=== PATIENT | male | born 2000 | race Caucasian/White ===

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

== ENCOUNTER 2021-03-01 00:51 | Emergency (ER) | payer SELFPAY ==
--- NOTE | 2021-03-01 | ECG_ITS ---
APPROVED REPORT Exam: Resting ECG HR:91 bpm ECG Measurements Heart Rate 91 AXES GA 136 P 42 QRSd 92 QRS 0 QT 340 T 43 QTc 418 Conclusion Normal sinus rhythm Normal ECG Electronically signed by : Gabriele Arenas, 03/01/2021 13:46:38
[2021-03-01 00:54] VITALS: BP 142/83; PULSE 97; RESP 18; TEMP 36.4; O2SAT 100; BMI 33.5
[2021-03-01 01:14] LABS: Basophils # 0.1 K/mm3 (0-0.2); Basophils % 0.7 % (0.1-2.0); Eosinophils # 0.1 K/mm3 (0.0-0.4); Eosinophils % 0.7 % (0.1-12.0); Hematocrit 46.3 % (42.0-52.0); Hemoglobin 16.1 g/dL (14.1-18.0); Lymphocytes # 2.3 K/mm3 (0.7-4.5); Lymphocytes % 25.5 % (10-50); Mean Corpuscular HGB Conc 34.8 g/dL (31.8-35.4); Mean Corpuscular Hemoglobin 29.3 pg (27.0-31.2); Mean Corpuscular Volume 84.2 fl (80-94); Mean Platelet Volume 8.1 fl (7.4-10.4); Monocytes # 0.5 K/mm3 (0.1-1.0); Monocytes % 5.2 % (1.7-9.3); Neutrophils # 6.2 K/mm3 (1.8-7.8); Platelet Count 244 K/mm3 (142-424); Red Cell Distribution Width 13.8 % (11.5-17.5); White Blood Count 9.1 K/mm3 (4.5-13.0)
[2021-03-01 01:19] LABS: Alanine Aminotransferase 64 U/L (12-78); Albumin Level 4.9 g/dl (3.5-5.0); Alkaline Phosphatase 74 U/L (38-126); Amylase 55 U/L (30-110); Anion Gap 17.1 mEq/L (5-15); Aspartate Amino Transferase 38 U/L (17-59); Bilirubin,Direct 0.4 mg/dl (0.0-0.4); Bilirubin,Indirect 0.2 mg/dL (0.0-0.9); Bilirubin,Total 0.6 mg/dl (0.2-1.3); Bilirubin,Unconjugated 0.2 mg/dL (0.0-1.1); Blood Urea Nitrogen 11 mg/dl (9-20); Calcium 9.2 mg/dl (8.4-10.2); Carbon Dioxide 28 mmol/L (22.0-30.0); Chloride 100 mmol/L (98-107); Creatinine Clearance Estimated 203 mL/min (50-200); Estimated Glomerular Filt Rate 109 ml/min (>60); GFR (African American) 132 ML/MIN (>60); Glucose 115 mg/dl (74-100); Lipase 126 U/L (23-300); Potassium 4.1 mmoL/L (3.5-5.1); Sodium 141 mmol/L (136-145)
[2021-03-01 01:24] LABS: C-Reactive Protein 1.4 mg/L (0-4)
[2021-03-01 01:29] VITALS: BP 00/00; PULSE 0; RESP 0; TEMP -17.7; TEMP 0; O2SAT 0
[2021-03-01 01:35] LABS: Procalcitonin 0.046 ng/mL (0.0-2.0)
[2021-03-01 01:46] LABS: Erythrocyte Sedimentation Rate 6 mm/hr (0-15)
== END 2021-03-01 01:30 | disposition left against medical advice (07) ==
PROVIDERS: Emergency Provider Emergency Medicine; PCP Internal Medicine Adolescent Medicine
DX: Z53.21 Procedure and treatment not carried out due to patient leaving prior to being seen by health care provider (principal)
CPT/HCPCS: 80048; 80076; 82150; 83690; 84145; 85025; 85651; 86140; 93005; 96365; 96375; 99211

== ENCOUNTER → 2021-05-15 11:19 | Outpatient (CLI) | payer OTHER, SELFPAY | PROVIDERS: PCP Internal Medicine Adolescent Medicine; Visit Provider Nurse Practitioner | DX: Z20.822 Contact with and (suspected) exposure to COVID-19 (principal) | CPT/HCPCS: C9803; U0003; U0005 ==

== ENCOUNTER → 2021-08-07 13:52 | Outpatient (CLI) | payer OTHER, SELFPAY | PROVIDERS: PCP Internal Medicine Adolescent Medicine; Visit Provider Nurse Practitioner | DX: Z20.822 Contact with and (suspected) exposure to COVID-19 (principal) | CPT/HCPCS: C9803; U0003; U0005 ==

== ENCOUNTER 2021-08-29 14:58 | Emergency (ER) | payer SELFPAY ==
[2021-08-29 16:50] VITALS: BP 146/80; PULSE 78; RESP 19; TEMP 37.1; O2SAT 98; BMI 42.6
[2021-08-29 17:09] LABS: UTC Strep Screen (Rapid) Negative (Negative)
--- NOTE | 2021-08-29 17:25 | HMH.EDUTC ---
[facility] [place] Clinical Impression: Otitis media Qualifiers: Otitis media type: unspecified Laterality: right Qualified Code(s): H66.91 - Otitis media, unspecified, right ear Disposition: Home, Self-Care Condition on Discharge: Good Instructions: Sore Throat, Middle Ear Infection Additional Instructions: *Monitor Temp, Over the counter Motrin or Tylenol as directed/as needed Tylenol every 4 hours and Motrin every 6 hours (as long as your family doctor has told you that you can take it) for fever or pain. and straight to ER if unable to lower temp less than 101.0 after medication given *Warm salt water gargles may help to soothe the throat *Throat Lozenges *Warm fluids like tea with honey may help to soothe the throat *Sleep elevated *Humidifier/Vaporizer Take medication as prescribed Your throat swab was sent for culture. Those results are typically sent to your primary care. Be sure to follow up in 2-3 days with your family doctor/primary care physician if no improvement so they can review those result and treat if necessary. If you don?t have a primary care doctor, I recommend you get one but in the mean time, you will have to return to a walk in clinic Follow up IMMEDIATELY for new or worsening symptoms or no Noticeable improvement over the next 48-72 hours. 911 for difficulty breathing or swallowing Prescriptions: Amoxicillin [Amoxicillin 875MG Tab] 875 mg PO Q12H #20 tab [id number] Referrals: Gabriele Arenas MD [Primary Care Provider] - As needed Time of Disposition: 17:49 Medical Decision Making - Billy Inquiry Pt receiving controlled substance: No Billy was queried for this patient: No Vital Signs: 08/29/21 16:50 Temperature 98.7 F Temperature Source Oral Pulse Rate [Right Brachial] 78 Respiratory Rate 19 Blood Pressure [Right Arm] 146/80 H Blood Pressure Mean [Right Arm] 102 Blood Pressure Source [Right Arm] Automatic Cuff Blood Pressure Position [Right Arm] Sitting 02 Sat by Pulse Oximetry 98 Oxygen Delivery Method Room Air - Lab Data Lab Results 08/29/21 17:01: Strep Scn Rapid Clinic Negative 08/29/21 17:30: Influenza Type A Ag Negative, Influenza Type B Ag Negative Orders (Tests/Meds): ORDERS Category Date Time Status Strep Screen Confirmation Stat Micro 08/29/21 17:01 Received [facility] [place] - General Stated complaint: sore throat, congestion, ear pain Time Seen by Provider: 08/29/21 17:25 Mode of Arrival: Ambulatory Source of Information: Patient Limitations: No Limitations Description of Symptoms (Recalled from Triage Doc. by RN): PATIENT C/O SORE THROAT, EAR PAIN, AND NASAL CONGESTION SINCE TUESDAY HEENT Symptoms (Recalled from RN notes): Yes Resp Symptoms (Recalled from RN notes): No Skin Symptoms (Recalled from RN notes): No MS Symptoms (Recalled from RN notes): No Functional Status (Recalled from RN notes): WNL - History of Present Illness Provider Complaint: Patient states that he has been having pain in his right ear, sinus congestion and sore throat for the last couple of days that has continued to get worse States that today he was still feeling bad so he came in to get checked - Related Data Previous Rx's Medication Instructions Recorded Ondansetron [Zofran 4mg ODT] 4 mg PO TIDP PRN #10 tab 08/31/20 Amoxicillin [Amoxicillin 875MG 875 mg PO Q12H #20 tab 08/29/21 Tab] Allergies Allergy/AdvReac Type Severity Reaction Status Date / Time No Known Allergies Allergy Verified 07/28/20 17:28 - Worker's Comp Is this a Worker's Comp case?: No [facility] History - Hepatitis A Screen Drug use history?: No High risk sexual behaviors?: No History of sexually transmitted infection?: No Currently employed?: No Childcare worker?: No Do you have indoor plumbing?: Yes Do you have electricity?: Yes Attestation statement:: This patient has been screened for Hepatitis A risk factors. I have revie
[2021-08-29 17:44] LABS: UTC Influenza A Antigen Negative (Negative); UTC Influenza B Antigen Negative (Negative)
[2021-08-29 17:48] VITALS: BP 146/80; PULSE 78; RESP 19; TEMP 37.1; O2SAT 98
== END 2021-08-29 17:51 | disposition home or self-care (01) ==
PROVIDERS: Emergency Provider Nurse Practitioner; PCP Internal Medicine Adolescent Medicine
DX: H66.91 Otitis media, unspecified, right ear (principal)
CPT/HCPCS: 87804; 87880; 99203; G0463

== ENCOUNTER 2021-08-30 16:59 | Emergency (ER) | payer OTHER, SELFPAY ==
[2021-08-30 19:30] VITALS: BP 141/82; PULSE 86; RESP 19; TEMP 37; O2SAT 98; BMI 38.0
--- NOTE | 2021-08-30 19:47 | HMH.EDUTC ---
[facility] – [place] Disposition Clinical Impression: Encounter for laboratory testing for COVID-19 virus Otitis media Qualifiers: Otitis media type: suppurative Chronicity: acute Laterality: right Recurrence: non-recurrent Spontaneous tympanic membrane rupture: without spontaneous rupture Qualified Code(s): H66.001 - Acute suppurative otitis media without spontaneous rupture of ear drum, right ear Disposition: Home, Self-Care Condition on Discharge: Good Instructions: DI for COVID-19 (Suspected or Confirmed ) Additional Instructions: covid swab was sent to lab, call tomorrow for results. self isolate until test results are known to be negative Referrals: Gabriele Arenas MD [Primary Care Provider] - Time of Disposition: 19:50 Medical Decision Making - Billy Inquiry Pt receiving controlled substance: No Orders (Tests/Meds): ORDERS Category Date Time Status Covid-19 Nasal PCR ([facility]) Routine Lab 08/30/21 19:43 Ordered [facility] [place] HPI - General Chief complaint: [facility] Stated complaint: covid test Time Seen by Provider: 08/30/21 19:48 Mode of Arrival: Ambulatory Source of Information: Patient Limitations: No Limitations - History of Present Illness Provider Complaint: 21 yr old male presents for covid test. pt states he was seen yesterday and given antibiotics for ear infection and was tested for strep,flu but would like tested for covid - Related Data Previous Rx's Medication Instructions Recorded Ondansetron [Zofran 4mg ODT] 4 mg PO TIDP PRN #10 tab 08/31/20 Amoxicillin [Amoxicillin 875MG 875 mg PO Q12H #20 tab 08/29/21 Tab] Allergies Allergy/AdvReac Type Severity Reaction Status Date / Time No Known Allergies Allergy Verified 07/28/20 17:28 [facility] History - Hepatitis A Screen Attestation statement:: This patient has been screened for Hepatitis A risk factors. I have reviewed the patient's past medical history: Yes Medical History: Denies:: Diabetes Mellitus Type 1, Diabetes Mellitus Type 2 Laterality Cases: Bilateral: Myringotomy (Ear Tubes), Tonsillectomy Other Surgeries: Yes: Other - Social History Smoking Status: Never smoker Alcohol Intake: never Occupational Status: employed Family Hx:: No significant family history ROS Obtained: Yes Systems reviewed as appropriate & no additional complaints - Constitutional Constitutional: Reports system reviewed and no additional complaints, except as docu, Denies fever(s) - Eyes Eyes: Reports system reviewed and no additional complaints, except as docu, Denies blurry vision - ENT Ears, Nose, Mouth, and Throat: Reports system reviewed and no additional complaints, except as docu, Reports otalgia, Reports nasal congestion, Reports nasal discharge, Reports sore throat - Cardiovascular Cardiovascular: Reports system reviewed and no additional complaints, except as docu, Denies chest pain - Respiratory Respiratory: Reports system reviewed and no additional complaints, except as docu, Denies cough - Gastrointestinal Gastrointestingal: Reports: system reviewed and no additional complaints, except as docu. Denies: abdominal pain - Genitourinary Male Genitourinary: Reports system reviewed and no additional complaints, except as docu - Musculoskeletal Musculoskeletal: Reports system reviewed and no additional complaints, except as docu, Denies joint pain - Integumentary/Breasts Skin/Breast: Reports system reviewed and no additional complaints, except as docu, Denies rash - Neurologic Neurologic: Reports system reviewed and no additional complaints, except as docu, Denies dizziness - Endocrine Endocrine: Reports system reviewed and no additional complaints, except as docu, Denies fatigue - Hematologic/Lymphatic Henatologic/Lymphatic: Reports system reviewed and no additional complaints, except as docu, Denies lymphadenopathy - Allergic/Immunologic Allergic/Immunologic: Reports system reviewed and no additional compla
[2021-08-30 19:51] VITALS: BP 141/82; PULSE 86; RESP 19; TEMP 37; O2SAT 98
== END 2021-08-30 19:55 | disposition home or self-care (01) ==
PROVIDERS: Emergency Provider Nurse Practitioner Family; PCP Internal Medicine Adolescent Medicine
DX: U07.1 COVID-19 (principal); H66.001 Acute suppurative otitis media without spontaneous rupture of ear drum, right ear
CPT/HCPCS: 99202; C9803; G0463; U0003; U0005

== ENCOUNTER 2022-01-31 00:05 | Emergency (ER) | payer SELFPAY ==
[2022-01-31] VITALS (7 sets, daily range): BP systolic 140–168; BP diastolic 79–88; PULSE 99–136; RESP 16–17; TEMP 36.7; O2SAT 95–98; BMI 38.0
--- NOTE | 2022-01-31 00:04 | ECG_ITS ---
APPROVED REPORT Exam: Resting ECG HR:126 bpm ECG Measurements Heart Rate 126 AXES OR 135 P 31 QRSd 98 QRS 38 QT 293 T 27 QTc 368 Conclusion SINUS TACHYCARDIA POSSIBLE RIGHT VENTRICULAR CONDUCTION DELAY [RSR (QR) IN V1/V2] ABNORMAL RHYTHM ECG UNCONFIRMED REPORT Electronically signed by : Gabriele Arenas MD 02/02/2022 22:20:58
--- NOTE | 2022-01-31 00:15 | HMH.EDGENADL ---
ED Disposition Clinical Impression: Atypical chest pain Disposition: Home, Self-Care Condition on Discharge: Good Instructions: DI for Atypical Chest Pain Additional Instructions: Recommend Tylenol and ibuprofen for continued pain. You are given follow-up with cardiology due to repeat episodes of this pain but it is very low risk based on data that this pain is related to your heart. Referrals: Gabriele Arenas MD [Primary Care Provider] - Cardiology [Provider Group] Cristóbal Mireles PA [Physician Door Liner Helper] - - Critical Care Critical Care Time: No Attestation: On 01/31/22, the high probability of a clinically significant, sudden or life threatening deterioration of the following system(s) required my full and direct attention, intervention and personal management. The time I documented below is in addition to time spent performing reported procedures but includes the following listed in this critical care notation. Medical Decision Making - Medical Records Medical records reviewed: Yes: I reviewed the patient's medical records. - Billy Inquiry Pt receiving controlled substance: No Vital Signs: 01/31/22 00:05 01/31/22 00:30 01/31/22 01:00 Temperature 98.1 F Temperature Source Oral Pulse Rate 136 H 118 H Pulse Rate [Right] 117 H Respiratory Rate 16 Blood Pressure Blood Pressure [Right Arm] 168/86 H Blood Pressure Mean Blood Pressure Mean [Right Arm] 113 02 Sat by Pulse Oximetry 98 95 95 Oxygen Delivery Method 01/31/22 01:31 01/31/22 02:00 01/31/22 03:00 Temperature Temperature Source Pulse Rate 109 H 114 H 111 H Pulse Rate [Right] Respiratory Rate Blood Pressure 140/88 148/79 H Blood Pressure [Right Arm] Blood Pressure Mean 97 Blood Pressure Mean [Right Arm] 02 Sat by Pulse Oximetry 95 95 97 Oxygen Delivery Method 01/31/22 03:26 Temperature 98.0 F Temperature Source Oral Pulse Rate 99 H Pulse Rate [Right] Respiratory Rate 17 Blood Pressure 140/79 Blood Pressure [Right Arm] Blood Pressure Mean Blood Pressure Mean [Right Arm] 02 Sat by Pulse Oximetry Oxygen Delivery Method Room Air - Lab Data Lab Results 01/31/22 00:34: Sodium 139, Potassium 3.9, Chloride 103, Carbon Dioxide 25, Anion Gap 14.9, BUN 8 L, Creatinine 0.80, Estimated Creat Clear 236, Estimated GFR 123, Est GFR ( Amer) 149, Glucose 154 H, Calcium 9.1, Total Bilirubin 0.2, AST 34, ALT 47, Alkaline Phosphatase 72, Troponin I < 0.01, Total Protein 6.9, Albumin 4.2, Globulin 2.7, Albumin/Globulin Ratio 1.6 01/31/22 00:55: WBC 6.1, RBC 5.01, Hgb 15.2, Hct 42.9, MCV 85.8, MCH 30.5, MCHC 35.5 H, RDW 13.9, Plt Count 221, MPV 7.6, Neut % (Auto) 69.5, Lymph % (Auto) 23.0, Brooke % (Auto) 6.8, Eos % (Auto) 0.7, Baso % (Auto) 4.7 H, Neut # (Auto) 4.2, Lymph # (Auto) 1.4, Brooke # (Auto) 0.4, Eos # (Auto) 0.0, Baso # (Auto) 0.3 H 01/31/22 00:55: D-Dimer 0.39 01/31/22 03:16: Troponin I < 0.01 Result diagrams: 01/31/22 00:55 01/31/22 00:34 Orders (Tests/Meds): ED MEDICATIONS Generic Name Dose Route Start Last Admin Trade Name Freq PRN Reason Stop Dose Admin Sodium Chloride 1,000 mls @ 999 mls/hr 01/31/22 00:45 01/31/22 00:49 Sod Chlor 0.9% 1000ml Bag IV 01/31/22 01:45 999 mls/hr .Q1H1M AMARJIT Administration Discontinued Medications Generic Name Dose Route Start Last Admin Trade Name Freq PRN Reason Stop Dose Admin Acetaminophen 1,000 mg 01/31/22 03:39 01/31/22 03:48 Acetaminophen 500mg Tab PO 01/31/22 03:40 1,000 mg ONCE ONE Administration Belladonna Alkaloids 60 ml 01/31/22 00:33 01/31/22 00:48 Gi Cocktail 60ml Udc PO 01/31/22 00:34 60 ml ONCE ONE Administration Ketorolac Tromethamine 15 mg 01/31/22 00:33 01/31/22 00:48 Ketorolac 30mg/Ml Vial IV 01/31/22 00:34 15 mg ONCE ONE Administration Methocarbamol 1,000 mg 01/31/22 03:39 01/31/22 03:48 Methocarbamol 500mg Tablet PO 01/31/22 03:40 1,000 mg BID ONE Admini
--- NOTE | 2022-01-31 00:32 | XR_ITS ---
PROCEDURE INFORMATION: Exam: XR Chest Exam date and time: 01/31/2022 12:35 AM Age: 21 years old Clinical indication: Sternal or substernal pain; Additional info: Chest pain TECHNIQUE: Imaging protocol: XR of the chest. Views: 1 view. COMPARISON: CR XR CHEST 2V 02/17/2020 11:22 AM FINDINGS: Lungs: Unremarkable. No consolidation. Pleural spaces: Unremarkable. No pleural effusion. No pneumothorax. Heart/Mediastinum: Unremarkable. No cardiomegaly. Bones/joints: Unremarkable. IMPRESSION: No acute cardiopulmonary abnormality.
[2022-01-31 00:52] LABS: Alanine Aminotransferase 47 U/L (12-78); Albumin Level 4.2 g/dl (3.5-5.0); Albumin/Globulin Ratio 1.6 (1.1-1.8); Alkaline Phosphatase 72 U/L (38-126); Anion Gap 14.9 mEq/L (5-15); Aspartate Amino Transferase 34 U/L (17-59); Bilirubin,Total 0.2 mg/dl (0.2-1.3); Blood Urea Nitrogen 8 mg/dl (9-20); Calcium 9.1 mg/dl (8.4-10.2); Carbon Dioxide 25 mmol/L (22.0-30.0); Chloride 103 mmol/L (98-107); Creatinine Clearance Estimated 236 mL/min (50-200); Estimated Glomerular Filt Rate 123 ml/min (>60); GFR (African American) 149 ML/MIN (>60); Globulin 2.7 g/dL (1.3-3.2); Glucose 154 mg/dl (74-100); Potassium 3.9 mmoL/L (3.5-5.1); Sodium 139 mmol/L (136-145); Total Protein,Serum 6.9 g/dl (6.3-8.2)
[2022-01-31 01:04] LABS: Basophils # 0.3 K/mm3 (0-0.2); Basophils % 4.7 % (0.1-2.0); Eosinophils % 0.7 % (0.1-12.0); Hematocrit 42.9 % (42.0-52.0); Hemoglobin 15.2 g/dL (14.1-18.0); Lymphocytes # 1.4 K/mm3 (0.7-4.5); Mean Corpuscular HGB Conc 35.5 g/dL (31.8-35.4); Mean Corpuscular Hemoglobin 30.5 pg (27.0-31.2); Mean Corpuscular Volume 85.8 fl (80-94); Mean Platelet Volume 7.6 fl (7.4-10.4); Monocytes # 0.4 K/mm3 (0.1-1.0); Monocytes % 6.8 % (1.7-9.3); Neutrophils # 4.2 K/mm3 (1.8-7.8); Neutrophils % 69.5 % (37.0-80.0); Platelet Count 221 K/mm3 (142-424); Red Blood Count 5.01 M/mm3 (4.60-6.20); Red Cell Distribution Width 13.9 % (11.5-17.5); White Blood Count 6.1 K/mm3 (4.5-13.0)
[2022-01-31 01:09] LABS: Troponin I < 0.01 ng/ml (0.00-0.034)
[2022-01-31 01:22] LABS: D-Dimer 0.39 ug/mL (0.0-0.5)
[2022-01-31 03:45] LABS: Troponin I < 0.01 ng/ml (0.00-0.034)
== END 2022-01-31 04:09 | disposition home or self-care (01) ==
PROVIDERS: Emergency Provider Student in an Organized Health Care Education/Training Program; PCP Internal Medicine Adolescent Medicine
DX: R07.89 Other chest pain (principal); R00.0 Tachycardia, unspecified
CPT/HCPCS: 71045; 80053; 84484; 85025; 85378; 93005; 96361; 96374; 99284

== ENCOUNTER 2022-04-23 12:07 | Emergency (ER) | payer BC, SELFPAY ==
--- NOTE | 2022-04-23 12:01 | ECG_ITS ---
APPROVED REPORT Exam: Resting ECG HR:84 bpm ECG Measurements Heart Rate 84 AXES SD 143 P 22 QRSd 105 QRS 18 QT 348 T 36 QTc 389 Conclusion SINUS RHYTHM WITH SINUS ARRHYTHMIA NORMAL ECG UNCONFIRMED REPORT Electronically signed by : Gabriele Arenas MD 04/24/2022 16:27:10
[2022-04-23 12:07] VITALS: BP 137/88; PULSE 94; RESP 20; TEMP 36.7; O2SAT 97; BMI 39.5
[2022-04-23 12:08] VITALS: BMI 39.5
--- NOTE | 2022-04-23 12:09 | XR_ITS ---
FINAL REPORT CLINICAL HISTORY: CHESTPAIN COMPARISON: 01/31/2022 FINDINGS: SINGLE-VIEW CHEST The heart size is normal. The mediastinum is normal. The lungs are clear. There is no pneumothorax. IMPRESSION: No acute cardiopulmonary process. Reviewed, Interpreted and Dictated by Tae Carcamo III, MD Transcribed by Debra Burns Authenticated and [facility]
--- NOTE | 2022-04-23 12:10 | PC.NURSE ---
PT ON PHONE AT THIS TIME, NO NEEDS AT THIS TIME
--- NOTE | 2022-04-23 12:18 | HMH.EDGENADL ---
Discharge Plan Disposition Patient Disposition: Home, Self-Care Condition: Good Prescriptions Prescriptions: No Action ondansetron 4 MG tablet,disintegrating 4 mg PO TIDP PRN (Reason: Nausea) Qty: 10 0RF amoxicillin 875 MG tablet 875 mg PO Q12H Qty: 20 0RF Referrals Follow up/Referrals: Yandel Christianson MD [Staff Physician] - See instructions Gabriele Arenas MD [Primary Care Provider] - See instructions Activity Restrictions/Add. Instructions Additional Instructions/Restrictions: Call airbrush artist photography, Dr. Christianson, to arrange follow-up appointment. Ibuprofen as needed for pain. Additional instructions for CHEST PAIN: Return immediately if worsening chest pain, vomiting, shortness of breath, fever, coughing of blood. Clinical Impressions Clinical Impression: Atypical chest pain Stand Alone Forms Stand Alone Forms: Work/School Release Discharge ED Provider: Rory Riggs General Adult HPI General Chief complaint: Chest Pain Stated complaint: chest pain Time Seen by Provider: 04/23/22 12:40 History of Present Illness HPI narrative: States while lying in bed last night he developed pain in his right parasternal area. Constant since onset. Worsened by laying on his right side and relieved by laying on his back. Feels short of breath. Has pain in his right upper arm. No cough. No vomiting. No leg pain or swelling. Prior episodes of similar chest pain. However, states this time the pain is worse and he has pain in his right arm which is new. Seen in this emergency department in October for the similar symptoms, work-up negative. No follow-up since then. He is a non-smoker. No chronic medical problems or medications. Related Data Previous Rx's Medication Instructions Recorded ondansetron 4 mg disintegrating 4 mg PO TIDP PRN Nausea #10 tabs 08/31/20 tablet amoxicillin 875 mg tablet 875 mg PO Q12H #20 tabs 08/29/21 Allergies Allergy/AdvReac Type Severity Reaction Status Date / Time No Known Allergies Allergy Verified 07/28/20 17:28 PFSH PFSH Social History Smoking Status: Never smoker second hand exposure: No alcohol intake: never current occupational status: employed Travel in the last 8 weeks: None ROS Obtained: Yes Systems reviewed as appropriate & no additional complaints except as documented Constitutional Constitutional: Denies fever(s) Cardiovascular Cardiovascular: Reports chest pain, Denies diaphoresis and Reports radiating jaw, neck or arm pain Respiratory Respiratory: Reports shortness of breath and Denies cough Gastrointestinal Gastrointestingal: Denies abdominal pain or vomiting Physical Exam General General appearance: alert and in no apparent distress Head Head exam: atraumatic and normocephalic Eye Eye exam: Present normal appearance and EOMI ENT ENT exam: Present mucous membranes moist Neck Neck exam: Present normal inspection and trachea midline Chest Chest inspection: Present normal inspection, symmetric chest wall rise and tenderness (Reproducible tenderness right parasternal area) Respiratory Respiratory exam: Present normal lung sounds bilaterally; Absent respiratory distress or wheezes Cardiovascular Cardiovascular exam: Present regular rate, normal rhythm and normal heart sounds Abdominal Exam Abdominal exam: Present soft; Absent distention, tenderness, guarding or rebound Extremities Exam Extremities exam: Absent edema or calf tenderness Neurological Exam Neurological exam: Present alert and oriented X3 Psychiatric Psychiatric exam: Present normal affect and normal mood Skin Skin exam: Present warm and dry Medical Decision Making Medical Records Medical records reviewed: Yes I reviewed the patient's medical records. MR Comment: Reviewed emergency department note from 11/08/2021 visit for chest pain. Work-up negative including D-dimer and troponin x2. Referred to cardiology, patient states he has not followed up with cardiol
[2022-04-23 12:31] VITALS: BP 122/73; PULSE 94; O2SAT 94
[2022-04-23 12:34] LABS: Basophils # 0.1 K/mm3 (0-0.2); Basophils % 1.1 % (0.1-2.0); Chloride 105 mmol/L (98-107); Eosinophils % 0.5 % (0.1-12.0); Hematocrit 45.2 % (42.0-52.0); Hemoglobin 14.7 g/dL (14.1-18.0); Lymphocytes # 2.5 K/mm3 (0.7-4.5); Lymphocytes % 32.5 % (10-50); Mean Corpuscular HGB Conc 32.6 g/dL (31.8-35.4); Mean Corpuscular Hemoglobin 28.7 pg (27.0-31.2); Mean Corpuscular Volume 88.1 fl (80-94); Mean Platelet Volume 8.1 fl (7.4-10.4); Monocytes # 0.5 K/mm3 (0.1-1.0); Monocytes % 6.1 % (1.7-9.3); Neutrophils # 4.6 K/mm3 (1.8-7.8); Neutrophils % 59.8 % (37.0-80.0); Platelet Count 250 K/mm3 (142-424); Red Blood Count 5.13 M/mm3 (4.60-6.20); Red Cell Distribution Width 13.5 % (11.5-17.5); Sodium 141 mmol/L (136-145); White Blood Count 7.7 K/mm3 (4.5-13.0)
[2022-04-23 12:37] LABS: Blood Urea Nitrogen 10 mg/dl (9-20); Calcium 9.3 mg/dl (8.4-10.2); Carbon Dioxide 25 mmol/L (22.0-30.0); Creatinine Clearance Estimated 246 mL/min (50-200); Estimated Glomerular Filt Rate 123 ml/min (>60); GFR (African American) 149 ML/MIN (>60); Glucose 119 mg/dl (74-100)
--- NOTE | 2022-04-23 12:44 | PC.NURSE ---
ED MD AT BEDSIDE FOR EVALUATION
[2022-04-23 12:52] LABS: Troponin I < 0.01 ng/ml (0.00-0.034)
[2022-04-23 13:52] VITALS: BP 125/75; PULSE 95; RESP 18; TEMP 36.7; O2SAT 98
== END 2022-04-23 13:53 | disposition home or self-care (01) ==
PROVIDERS: Emergency Provider Emergency Medicine; PCP Internal Medicine Adolescent Medicine
DX: R07.2 Precordial pain (principal); M79.601 Pain in right arm; R11.0 Nausea
CPT/HCPCS: 71045; 80048; 84484; 85025; 93005; 96374; 99284

== ENCOUNTER 2022-07-17 19:31 | Emergency (ER) | payer BC, SELFPAY ==
[2022-07-17 19:33] VITALS: BP 125/78; PULSE 110; RESP 16; TEMP 36.6; O2SAT 97; BMI 38.0
[2022-07-17 19:56] LABS: Coronavirus 19, PCR Not Detected (NotDetected); Influenza A, PCR Not Detected (NotDetected); Influenza B, PCR Not Detected (NotDetected)
[2022-07-17 20:15] LABS: Strep Scrn Group A (Rapid) Negative (Negative)
--- NOTE | 2022-07-17 20:36 | HMH.EDURI ---
Discharge Plan Disposition Patient Disposition: Home, Self-Care Chief Complaint: Upper Respiratory Infection Prescriptions Prescriptions: No Action ondansetron 4 MG tablet,disintegrating 4 mg PO TIDP PRN (Reason: Nausea) Qty: 10 0RF amoxicillin 875 MG tablet 875 mg PO Q12H Qty: 20 0RF Referrals Follow up/Referrals: Gabriele Arenas MD [Primary Care Provider] - See instructions Clinical Impressions Clinical Impression: Viral infection Instructions Patient Instructions: DI for Viral Syndrome Discharge ED Provider: Izaiah Jacob URI/Sore Throat HPI General Chief Complaint: Upper Respiratory Infection Stated Complaint: cough,sore throat, fever, headache Time Seen by Provider: 07/17/22 20:36 Mode of Arrival: Ambulatory Source of Information: Patient and Medical Record Limitations: No Limitations Description of Symptoms (Recalled from ER Triage Doc. 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 Complaint: cough, sore throat and nasal congestion Onset (ago): day(s) Duration: intermittent Severity: moderate Able to tolerate fluids by mouth: Yes Associated symptoms: denies other symptoms Related Data Previous Rx's Medication Instructions Recorded ondansetron 4 mg disintegrating 4 mg PO TIDP PRN Nausea #10 tabs 08/31/20 tablet amoxicillin 875 mg tablet 875 mg PO Q12H #20 tabs 08/29/21 Allergies Allergy/AdvReac Type Severity Reaction Status Date / Time No Known Allergies Allergy Verified 07/28/20 17:28 PFSH PFSH Social History Smoking Status: Never smoker second hand exposure: No alcohol intake: never current occupational status: employed Travel in the last 8 weeks: None ROS Obtained: Yes All systems reviewed & no additional complaints except as documented Physical Exam General General appearance: alert Head Head exam: normocephalic Eye Eye exam: Present PERRL and EOMI ENT ENT exam: Present normal oropharynx, mucous membranes moist and TM's normal bilaterally Neck Neck exam: Present trachea midline Chest Chest inspection: Present symmetric chest wall rise Respiratory Respiratory exam: Present normal lung sounds bilaterally; Absent respiratory distress Cardiovascular Cardiovascular exam: Present regular rate Abdominal Exam Abdominal exam: Present soft Extremities Exam Extremities exam: Present full ROM Neurological Exam Neurological exam: Present alert, oriented X3 and CN II-XII intact; Absent motor sensory deficit Psychiatric Psychiatric exam: Present normal affect Skin Skin exam: Absent rash Medical Decision Making Medical Records Medical records reviewed: Yes I reviewed the patient's medical records. Billy Inquiry Pt receiving controlled substance: No Vital Signs: 07/17/22 19:33 Temperature 97.8 F Temperature Source Oral Pulse Rate [Right] 110 H Respiratory Rate 16 Blood Pressure [Right Arm] 125/78 Blood Pressure Mean [Right Arm] 93 02 Sat by Pulse Oximetry 97 Lab Data Lab results reviewed: Yes I reviewed the patient's lab results. Lab Results 07/17/22 19:45: Group A Strep Rapid Negative 07/17/22 19:45: SARS-CoV-2 (PCR) Not detected, Influenza A Untype (PCR) Not detected, Influenza Type B (PCR) Not detected Orders (Tests/Meds): ORDERS Category Date Time Status Full Resp Panel w/COVID ([facility]) Routine Lab 07/17/22 20:34 Ordered Rapid PCR Covid and Flu A/B Stat Lab 07/17/22 19:45 Completed Rapid Strep Scrn Group A [Strep Scrn Group A (Rapid)] Lab 07/17/22 19:45 Completed Stat Strep Screen Confirmation Stat Micro 07/17/22 19:45 Received Medical Decision Narrative: stable exam and rsp panel pending will treat as viral at this time Critical Care Time Critical Care Time Critical Care Time: No Attestation: On 07/17/22, the high probability of a clinically significant, sudden o
[2022-07-17 20:38] LABS: Adenovirus,PCR Not Detected (NotDetected); Bordetella Pertussis Not Detected (NotDetected); Chlamydophila Pneumoniae, PCR Not Detected (NotDetected); Coronavirus 19, PCR Not Detected (NotDetected); Coronavirus 229E Not Detected (NotDetected); Coronavirus NL63 Not Detected (NotDetected); Coronavirus OC43 Not Detected (NotDetected); Coronovirus HKU1,PCR Not Detected (NotDetected); Human Metapneumovirus Not Detected (NotDetected); Influenza A, PCR Not Detected (NotDetected); Influenza AH1, 2009 Not Detected (NotDetected); Influenza AH1, PCR Not Detected (NotDetected); Influenza AH3,PCR Not Detected (NotDetected); Influenza B, PCR Not Detected (NotDetected); Mycoplasma Pneumoniae, PCR Not Detected (NotDetected); Parainfluenza 1, PCR Not Detected (NotDetected); Parainfluenza 2, PCR Not Detected (NotDetected); Parainfluenza 3, PCR Not Detected (NotDetected); Parainfluenza 4, PCR Not Detected (NotDetected); Respiratory Syncytial Virus Not Detected (NotDetected)
[2022-07-17 20:49] VITALS: BP 119/78; PULSE 107; RESP 16; TEMP 36.6; O2SAT 97
[2022-07-17 22:43] LABS: Rhinovirus/Enterovirus Detected (NotDetected)
--- NOTE | 2022-07-18 12:38 | PC.NURSE ---
Pt called and got results of nasal swab.
== END 2022-07-17 20:56 | disposition home or self-care (01) ==
PROVIDERS: Emergency Medicine; Emergency Provider Emergency Medicine; PCP Internal Medicine Adolescent Medicine
DX: R05.9 Cough, unspecified (principal); J02.9 Acute pharyngitis, unspecified; R50.9 Fever, unspecified; R51.9 Headache, unspecified; B34.1 Enterovirus infection, unspecified
CPT/HCPCS: 87430; 87581; 87632; 87798; 99282; C9803; U0003; U0005

== ENCOUNTER 2023-01-13 19:23 | Emergency (ER) | payer BC, SELFPAY ==
[2023-01-13 19:41] VITALS: BP 158/78; PULSE 102; RESP 20; TEMP 36.6; O2SAT 98; BMI 38.0
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
[2023-01-13 21:06] VITALS: BP 147/73; PULSE 97; RESP 20; TEMP 36.6; O2SAT 98
== END 2023-01-13 21:11 | disposition home or self-care (01) ==
PROVIDERS: Emergency Provider Emergency Medicine; PCP Nurse Practitioner Family
DX: S06.0XAA Concussion with loss of consciousness status unknown, initial encounter (principal); S00.93XA Contusion of unspecified part of head, initial encounter; Y04.0XXA Assault by unarmed brawl or fight, initial encounter
CPT/HCPCS: 70450; 99284

== ENCOUNTER 2025-08-02 23:26 | Emergency (ER) | payer MEDICAID, SELFPAY ==
--- OUTSIDE RECORDS SUMMARY | 2024-11-24 16:30 | XMS_ITS ---
Author Organization [facility] Address [address] [facility] [address] [place] [address] Care Team Providers Care Environmental Health Technologist Name Role Phone Gabriele Arenas Primary Care Provider [phone] Gabriele Arenas Unavailable Unavailable Migration, Provider Unavailable Unavailable REASON FOR VISIT [facility] To [facility] Conversion Encounter Medications Medication SIG (Take, Route, Fr equency, Duration) Notes Start Date End Date Status Sertraline HCl 25 MG 1 tab(s) orally onc e a day; Duration: 30 day(s) 08/05/2022 Active Encounters Encounter Location Date Provider Diagnosis [facility] [address] [facility] [address] [place] [address] 11/24/2024 Provider Migration Situational anxiety F41.8 Assessments Encounter Date Diagnosis (ICD Code) Assessment Notes Treatment Notes Treatment Clinical Notes Section Notes 11/24/2024 Situational anxiety (ICD-10 - F41.8) Plan Of Treatment Medication Medication Name Sig Start Date Stop Date Notes Sertraline HCl 25 MG 1 tab(s) orally onc e a day; Duration: 30 day(s) 08/05/2022 Progress Notes * Pablo COHENDOB:2000 (25 yo M)Acc No.[id number]:11/24/2024 Patient: Ridge ROCKWELL Pablo Provider: Raul flores Migration :2000 A ge:24 Y S ex:Male Date:11/24/2024 Address:[facility] [address], [id number] Pcp:Gabriele Arenas Subjective: * Chief Complaints: * 1 . [facility] Conversion Encounter. * Medical History: Objective: * Vitals: Assessment: * Assessment: 1. S ituational anxiety - F41.8 (Primary) Plan: * Treatment: * * Electronic signature of Mann brunson Migration on 08/02/2025 at 11:39 PM EST Sign off status: Pending * Provider: Raul flores Migration Date: 0 11/24/2024 Generated for Smita kan/Trina/Docitting on: 1 10/03/2024 11:39 PM EST
[2025-08-02 23:34] VITALS: BP 118/82; PULSE 112; RESP 18; TEMP 36.6; O2SAT 96; BMI 40.7
[2025-08-02 23:35] VITALS: PULSE 111; O2SAT 96
--- OUTSIDE RECORDS SUMMARY | 2025-08-02 23:39 | XMS_ITS | Patient Health Record ---
Author Organization [facility] Address [address] [place] [address] Care Team Providers Care Primer Inserting Machine Adjuster Name Role Phone Gabriele Arenas Primary Care Provider Gabriele Arenas Unavailable Unavailable Migration, Provider Unavailable Unavailable Allergies No Known Allergies Medications Medication SIG (Take, Route, Fr equency, Duration) Notes Start Date End Date Status Sertraline HCl 25 MG 1 tab(s) orally onc e a day; Duration: 30 day(s) 08/05/2022 Active Immunizations Vaccine Route Administration Date Status Comme nts Varivax (Varicella) SC Subcutaneous 04/04/2014 Administere d Menveo IM Intramuscular 03/24/2018 Administered Menactra IM Intramuscular 06/07/2016 Administered Havrix Pediatric 2 Dose IM Intramuscular 03/24/2018 Admini stered Adacel (Tdap) IM Intramuscular 04/04/2014 Administered Social History Tobacco Use: Social History Observation Description Date Details (start date - stop date) Never Smoker NA - NA Smoking: Question Answer Notes Are you a: nonsmoker Problems Problem Type SNOMED Code ICD Code Onset Dates Problem Status W/U Status Risk Notes Problem History of seizure (3691798954) History of seizure (Z87.898) Active confirmed Problem Disturbance of anxiety and fearfulness in childhood and adolescence (188301628) 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8) Plan Of Treatment Pending Test Test Name Order Date Rapid Flu, A 10/05/2012 Rapid Flu, B 10/05/2012 Insurance Providers Payer Name Payer Address Payer Phone Subscriber Number Group Number Insured Name Patient Relationship to Insured Coverage Start Date Coverage End Date [employer] [address] [address] [place] [address] [id number] Pablo Cohen Self - patient is the insured Medications Administered Medication Instructions Date of Administration Dosage Notes Triamcinolone Acetonide 40mg Injection 10/02/2018 1 mL Medical (General) History Medical History History ICD Code ADHD seizures Surgical History Surgery Date(Month/Year) Ear tubes
[2025-08-02 23:45] VITALS: PULSE 115; O2SAT 97
[2025-08-02 23:53] VITALS: BP 118/82; PULSE 118; O2SAT 96
--- NOTE | 2025-08-02 23:55 | CT_ITS ---
PROCEDURE INFORMATION: Exam: CT Cervical Spine Without Contrast Exam date and time: 08/03/2025 12:13 AM Age: 25 years old Clinical indication: Injury or trauma; Fall; Additional info: Fall down stairs ttp thoracolumbar TECHNIQUE: Imaging protocol: Computed tomography of the cervical spine without contrast. Total images: 527 Radiation optimization: All CT scans at this facility use at least one of these dose optimization techniques: automated exposure control; mA and/or kV adjustment per patient size (includes targeted exams where dose is matched to clinical indication); or iterative reconstruction. COMPARISON: CT HEAD/BRAIN WO CON 08/03/2025 12:11 AM FINDINGS: Bones: Attenuation artifact compromising detail at lower levels. Straightened cervical lordosis. Vertebral body height and alignment is maintained. Base of the dens and the C1 and C2 articulations are preserved. The cervicooccipital junction is intact. The facet joints are appropriately aligned. Unremarkable posterior elements. Unremarkable disc spaces. Spinal canal contents are obscured by attenuation artifact. Lungs: Lung apices are clear. Soft tissues: No prevertebral soft tissue swelling. Unremarkable soft tissues of the neck. IMPRESSION: 1. Straightened cervical lordosis from position or muscle spasm. 2. Otherwise, unremarkable CT of the cervical spine.
--- NOTE | 2025-08-02 23:55 | CT_ITS ---
PROCEDURE INFORMATION: Exam: CT Thoracic Spine Without Contrast Exam date and time: 08/03/2025 12:15 AM Age: 25 years old Clinical indication: Injury or trauma; Fall; Additional info: Fall down stairs ttp thoracolumbar TECHNIQUE: Imaging protocol: Computed tomography of the thoracic spine without contrast. Total images: 322 Radiation optimization: All CT scans at this facility use at least one of these dose optimization techniques: automated exposure control; mA and/or kV adjustment per patient size (includes targeted exams where dose is matched to clinical indication); or iterative reconstruction. COMPARISON: CT CERVICAL SPINE WO CON 08/03/2025 12:13 AM FINDINGS: Bones/joints: Straightened thoracic kyphosis. Vertebral body height and alignment is maintained. Unremarkable disc spaces. The facet joints are appropriately aligned. Schmorl's node inferior endplate of T6 is a incidental finding. No concerning bone lesions. Spinal canal contents limited by attenuation artifacts. Posterior elements and costovertebral junctions are maintained. Minor thoracic dextrocurvature. Soft tissues: No paraspinal mass, fluid collection, or edema. Unremarkable soft tissues. Lymph nodes: Calcified subcarinal lymph nodes. Lungs: 14 mm left lower lobe granuloma. IMPRESSION: 1. No acute osseous abnormality. 2. Straightened thoracic kyphosis with minor dextrocurvature from position or muscle spasm. 3. Remote calcified granulomatous disease.
--- NOTE | 2025-08-02 23:55 | XR_ITS ---
PROCEDURE INFORMATION: Exam: XR Left Tibia and Fibula Exam date and time: 08/03/2025 12:20 AM Age: 25 years old Clinical indication: Injury or trauma; Fall; Blunt trauma; Lower leg; Right; Additional info: Fall down stairs, anterior pain TECHNIQUE: Imaging protocol: Radiologic exam of the left tibia and fibula. Views: 2 views. Total images: 4 COMPARISON: CR XR ANKLE LT MIN 3V 08/03/2025 12:20 AM FINDINGS: Bones/joints: No acute fracture or joint dislocation. No joint effusions. Unremarkable joint spaces. No concerning bone lesions. Soft tissues: Unremarkable soft tissues. IMPRESSION: Negative left tibia and fibula.
--- NOTE | 2025-08-02 23:55 | CT_ITS ---
PROCEDURE INFORMATION: Exam: CT Head Without Contrast Exam date and time: 08/03/2025 12:11 AM Age: 25 years old Clinical indication: Injury or trauma; Fall; Additional info: Fall down stairs TECHNIQUE: Imaging protocol: Computed tomography of the head without contrast. Total images: 622 Radiation optimization: All CT scans at this facility use at least one of these dose optimization techniques: automated exposure control; mA and/or kV adjustment per patient size (includes targeted exams where dose is matched to clinical indication); or iterative reconstruction. COMPARISON: CT HEAD/BRAIN WO CON 01/13/2023 7:58 PM FINDINGS: Brain: Normal. No hemorrhage. Unremarkable white matter. No mass effect. The dial-white interface is maintained. Cerebral ventricles: No ventriculomegaly. Paranasal sinuses: Moderate mucosal thickening right maxillary sinus. Sinuses are otherwise clear. No fluid levels. Mastoid air cells: Hypoplastic mastoid air cells. Bones: Unremarkable. No acute fracture. Soft tissues: Unremarkable. Notes: Limited by attenuation artifact from the calvarium. IMPRESSION: No acute intracranial abnormality.
--- NOTE | 2025-08-02 23:55 | XR_ITS ---
PROCEDURE INFORMATION: Exam: XR Left Foot Exam date and time: 08/03/2025 12:20 AM Age: 25 years old Clinical indication: Injury or trauma; Fall; Blunt trauma; Foot; Left; Additional info: Fall down stairs, pain medial foot TECHNIQUE: Imaging protocol: Radiologic exam of the left foot. Views: 3 or more views. Total images: 3 COMPARISON: CR XR ANKLE LT MIN 3V 08/03/2025 12:20 AM FINDINGS: Bones/joints: No acute fracture or joint dislocation. No concerning bone lesions. Unremarkable joint spaces. Soft tissues: Unremarkable soft tissues. IMPRESSION: Negative left foot.
--- NOTE | 2025-08-02 23:55 | CT_ITS ---
PROCEDURE INFORMATION: Exam: CT Lumbar Spine Without Contrast Exam date and time: 08/03/2025 12:17 AM Age: 25 years old Clinical indication: Injury or trauma; Fall; Additional info: Fall down stairs ttp thoracolumbar TECHNIQUE: Imaging protocol: Computed tomography of the lumbar spine without contrast. Total images: 305 Radiation optimization: All CT scans at this facility use at least one of these dose optimization techniques: automated exposure control; mA and/or kV adjustment per patient size (includes targeted exams where dose is matched to clinical indication); or iterative reconstruction. COMPARISON: CT THORACIC SPINE WO CON 08/03/2025 12:15 AM FINDINGS: Bones/joints: Maintained lumbar lordosis. Five non rib-bearing lumbar vertebral bodies. Vertebral body height and alignment is maintained. The facet joints are appropriately aligned. No significant degenerative spondylosis. The posterior elements are intact. Unremarkable disc spaces. Included sacrum and SI joint spaces are unremarkable. No large disc herniation or critical spinal canal stenosis. Vasculature: Nonaneurysmal abdominal aorta. Soft tissues: No paraspinal mass, fluid collection, or edema. Unremarkable soft tissues. IMPRESSION: Unremarkable CT of the lumbar spine.
--- NOTE | 2025-08-02 23:55 | XR_ITS ---
PROCEDURE INFORMATION: Exam: XR Left Ankle Exam date and time: 08/03/2025 12:20 AM Age: 25 years old Clinical indication: Injury or trauma; Fall; Blunt trauma; Ankle; Left; Additional info: Fall down stairs, pain medially TECHNIQUE: Imaging protocol: Radiologic exam of the left ankle. Views: 3 or more views. Total images: 3 COMPARISON: CR XR FOOT LT MIN 3V 08/03/2025 12:20 AM FINDINGS: Bones/joints: No acute fracture or joint dislocation. No joint effusion. Maintained ankle mortise. Unremarkable joint spaces. No concerning bone lesions. Soft tissues: Unremarkable soft tissues. IMPRESSION: Negative left ankle.
--- NOTE | 2025-08-02 23:59 | XR_ITS ---
PROCEDURE INFORMATION: Exam: XR Pelvis Exam date and time: 08/03/2025 12:20 AM Age: 25 years old Clinical indication: Injury or trauma; Fall; Blunt trauma (contusions or hematomas); Bilateral; Pelvic region; Additional info: Fall down stairs TECHNIQUE: Imaging protocol: Radiologic exam of the pelvis. Views: 1 or 2 view. Total images: 1 COMPARISON: No relevant prior studies available. FINDINGS: Bones/joints: No acute fracture or joint dislocation. Pelvic ring is maintained. No widening of the pubic symphysis. Age-appropriate bilateral hips. Unremarkable proximal femurs. Soft tissues: Unremarkable soft tissues. IMPRESSION: Negative pelvic radiograph.
--- NOTE | 2025-08-02 23:59 | XR_ITS ---
PROCEDURE INFORMATION: Exam: XR Chest Exam date and time: 08/03/2025 12:20 AM Age: 25 years old Clinical indication: Injury or trauma; Fall; Blunt trauma (contusions or hematomas); Additional info: Fall down stairs TECHNIQUE: Imaging protocol: Radiologic exam of the chest. Views: 1 view. Total images: 1 COMPARISON: CR XR CHEST PORTABLE 04/23/2022 12:23 PM FINDINGS: Lungs: Unremarkable. No consolidation. No pulmonary vascular congestion or edema. Pleural spaces: Unremarkable. No pleural effusion. No pneumothorax. Heart/Mediastinum: Unremarkable. No cardiomegaly. No mediastinal widening or hilar enlargement. Bones/joints: Bone detail limited by film technique. Other findings: Lordotic position. IMPRESSION: No acute findings.
[2025-08-03] VITALS (7 sets, daily range): BP systolic 105–138; BP diastolic 76–90; PULSE 76–117; RESP 18–22; TEMP 36.6–37.1; O2SAT 95–98
[2025-08-03] MEDS: IBUPROFEN 800 MG TABLET PO (00:08)
[2025-08-03] MEDS: ACETAMINOPHEN 500MG TAB 1000 MG PO (00:08)
--- NOTE | 2025-08-03 00:56 | ED_ITS ---
Discharge Plan Disposition Patient Disposition: Home, Self-Care Condition: Good Prescriptions Prescriptions: No Action ondansetron 4 MG tablet,disintegrating 4 mg PO TIDP PRN (Reason: Nausea) Qty: 10 0RF amoxicillin 875 MG tablet 875 mg PO Q12H Qty: 20 0RF meloxicam 15 mg tablet 15 mg PO DAILY Qty: 10 0RF Referrals Follow up/Referrals: Dionna Eisenberg APRN [Primary Care Provider, Medical] - See instructions Activity Restrictions/Add. Instructions Additional Instructions/Restrictions: You were evaluated in the ER and are believed to be appropriate for discharge at this time. Continue taking any home medications as previously prescribed. Take Tylenol and ibuprofen if needed for pain, do not exceed the recommended dose on the bottle. Drink water and eat a small snack each time you take these medications to avoid side effects. Wear the ankle brace if needed for support, perform gentle range of motion exercises as you were shown in the ER as tolerated. Use the crutches to help with walking until you are able to bear weight. Make an appointment with your primary care doctor for reevaluation in 2 to 3 days. Return to the ER with any new, worsening, or otherwise concerning symptoms. Clinical Impressions Clinical Impression: Acute pain of left foot, Fall Print Language Print Language: Slovak Discharge ED Provider: Kelley Mario Adult HPI General Chief complaint: PAIN Stated complaint: fell down stairs, L foot injury Time Seen by Provider: 08/02/25 23:55 Mode of Arrival: Wheelchair Source of Information: Patient Description of Symptoms (Recalled from ER Triage Doc. by RN): pt reports he fell down stairs at home and injured his left foot and low back History of Present Illness HPI narrative: 25-year-old male presents to the ER for left foot and mid back pain. Patient r eports approximate 1.5 hours prior to arrival he was slung down a flight of stairs . He states he fell from the top step but picked his head up so that he did not strike it when he landed on his back part way down the stairs. He states he slid the rest of the way down the stairs. He states the left leg went backwards under him and he is complaining of pain in the left foot. He demonstrates to the medial aspect of the left foot. Patient denies hitting his head or losing consciousness. He does not take any blood thinners. He states originally he declined to be seen but as the pain has set in, it has worsened so he came to the ER for evaluation. He states he is able to ambulate on the left foot/ankle but with a significant limp. No medications taken prior to arrival for pain. He states I do not want any pain pills . Patient denies any headache, dizziness, numbness, tingling, or weakness. Patient had slight tachycardia during triage but states he is supposed to take medications for it but has not yet picked them up from the pharmacy. He states this has been a longstanding problem for him and a heart rate in the low 100s is not abnormal. Related Data Previous Rx's ?Medication ?Instructions ?Recorded ondansetron 4 mg disintegrating 4 mg PO TIDP PRN Nause a #10 tabs 08/31/20 tablet amoxicillin 875 mg tablet 875 mg PO Q12H #20 tabs 01/0 04/12 meloxicam 15 mg tablet 15 mg PO DAILY #10 tabs 05/2 01/11 Allergies Allergy/AdvReac Type Severity Reaction Status Date / Time No Known Allergies Allergy Verified 07/28/20 17:28 [facility] Disclaimer: The information contained in this section may have been updated after the patient was seen, as this information can be updated by other users. Social History Smoking Status: Unknown if ever smoked second hand exposure: No alcohol intake: never current occupational status: employed Travel in the last 8 weeks?: None Have you lived/traveled outside [place] in past 30 days?: No Contact w/someone who lives/traveled outside [place] past 30 days?: No Exposure to someone with infectious disease in past 14 days?: No Do you have a fever (greater than 100.4 F or 38 C)?: No Have you tested positive for COVID-19?: No Exposed to someone with COVID-19 in past 14 days?: No Do you have a sore throat?: No Do you have a cough?: No Do you have any weakness?: No Do you have any diarrhea?: No Are you experiencing any unusual bleeding?: No Do you have any muscle aches/pain?: No Do you have any abdominal pain?: No Are you experiencing loss of taste or smell?: No Other Medical History Have you received the Flu Vaccine for this season: No Have you received the Pneumonia Vaccine: No ROS Obtained: Yes Systems reviewed as appropriate & no additional complaints except as documented Per HPI Physical Exam General General appearance: alert and in no apparent distress Head Head exam: atraumatic and normocephalic Eye Eye exam: Present PERRL and EOMI ENT ENT exam: Present mucous membranes moist Neck Neck exam: Present normal inspection and full ROM; Absent tenderness Chest Chest inspection: Present symmetric chest wall rise and other (No bruising or other findings of trauma); Absent tenderness Respiratory Respiratory exam: Present normal lung sounds bilaterally; Absent respiratory distress, wheezes or stridor Cardiovascular Cardiovascular exam: Present regular rate and normal rhythm Abdominal Exam Abdominal exam: Present soft; Absent distention, tenderness, guarding or rebound Comment: No ecchymosis or other findings of trauma Extremities Exam Extremities exam: Present normal capillary refill, joint swelling (Mild swelling of the left foot/ankle with associated tenderness on the medial aspect of the left foot with no crepitus or deformity, no bruising) and other (2+ DP and PT pulses); Absent full ROM (Limited range of motion of the left ankle with both plantarflexion and dorsiflexion secondary to pain, but neurovascularly intact) or edema Back Exam Back exam: Present tenderness (Thoracolumbar tenderness without deformity or step-off, no neurologic deficits) Neurological Exam Neurological exam: Present alert and oriented X3; Absent motor sensory deficit Psychiatric Psychiatric exam: Present normal affect and normal mood Skin Skin exam: Present warm and dry Medical Decision Making Medical Records Medical records reviewed: Yes I reviewed the patient's medical records. Screening: Per USPSTF and CDC recommendations, given the prevalence of disease in our region, it is our hospital?s policy to screen for HIV and viral Hepatitis for all patients aged 18 and over and those with ongoing risk factors. Billy Inquiry Pt receiving controlled substance: No Vital Signs: 08/02/25 23:34 08/03/25 00:48 Temperature 97.9 F 97.9 F Temperature Source Oral Pulse Rate 76 Pulse Rate [Right] 112 H Respiratory Rate 18 22 Blood Pressure 120/87 Blood Pressure [Right Arm] 118/82 Blood Pressure Mean [Right Arm] 94 02 Sat by Pulse Oximetry 96 98 Oxygen Delivery Method Room Air Orders (Tests/Meds): ED MEDICATIONS Discontinued Medications Generic Name Dose Route Start Last Admin Trade Name Freq PRN Reason Stop Dose Admin Acetaminophen 1,000 mg 08/02/25 23:58 08/03/25 00:08 Acetaminophen 500mg Tab PO 08/02/25 23:59 1,000 mg ONCE ONE Administration Ibuprofen 800 mg 08/02/25 23:58 08/03/25 00:08 Ibuprofen 800 Mg Tablet PO 08/02/25 23:59 800 mg ONCE ONE Administration ORDERS Category Date Time Status CT cervical spine wo con Stat Cat Scan 08/02/25 23:[address] head/brain wo con Stat Cat Scan 08/02/25 23:[address] lumbar spine wo con Stat Cat Scan 08/02/25 23:[address] thoracic spine wo con Stat Cat Scan 08/02/25 23:55 Completed Ankle XR - Left minimum 3 Views [XR ankle LT min 3V] Exams 08/02/25 23:55 Completed Stat CXR --portable [XR chest portable] Stat Exams 08/02/25 23:59 Completed POCUS Point of Care (ER Only) Stat Exams 08/02/25 23:57 Completed XR foot LT min 3V Stat Exams 08/02/25 23:55 Completed XR pelvis 1-2V Stat Exams 08/02/25 23:59 Completed XR tibia fibula LT 2V Stat Exams 08/02/25 23:55 Completed Medical Decision Narrative: In summary, this 25-year-old male with comorbidities described in the HPI presents to the emergency department today with concerns of left foot pain and mid back pain after fall. On initial evaluation patient is hemodynamically stable, afebrile, GCS 15, airway intact, bilateral breath sounds present, 2+ pulses throughout. E-FAST personally performed and interpreted at bedside is negative. See procedure note for details. Secondary exam notable for tenderness at the thoracolumbar area without deformity or step-off, no bruising, abrasion, or other findings of injury. Patient also has tenderness along the medial aspect of the left foot without tenderness elsewhere in the lower leg though he describes aching in the front of the left car. No deformity or bruising. Mild swelling of the left foot/ankle. 2+ pulses. Neurovascularly intact throughout. Due to mechanism of injury I did consider the possibility of intracranial bleed or axial spine injury, but with patient being 1.5 hours after the injury with stable hemodynamics and negative E-FAST, I am not acutely concerned for acute intrathoracic or intra-abdominal pathology. I did consider the possibility of rupture, dislocation, sprain, strain on my differential as well. Based on these concerns, I ordered radiographic imaging including CTs and x-rays. Patient received Tylenol and ibuprofen for treatment at his request. CT head and C, T, L-spine were personally interpreted and I do not appreciate acute osseous injury or malalignment, no intracranial bleed. See radiology note for final reads. X-rays of the left lower extremity personally interpreted do not demonstrate acute osseous injury in the foot or ankle, chest and pelvis x-ray personally interpreted do not demonstrate pneumothorax, hemothorax, or displaced rib fracture, no open book pelvic fracture. See radiology reads for final interpretations. On reassessment patient's pain is tolerable. I reviewed results with him. He remains hemodynamically stable, afebrile, GCS 15. I believe he is appropriate for discharge at this time. He is comfortable with this plan. Ankle brace applied and crutches provided. Patient was given instructions on symptomatic management, follow up instructions, and return precautions for the emergency department. Patient indicated understanding and was discharged in stable condition. Procedures Miscellaneous Procedure Procedure Performed: EFAST ultrasound Indication: Fall Performed by Kelley Mario MD Views: [LUQ/RUQ/pelvis/limited cardiac/limited thoracic] Interpretation: Peritoneal free fluid: Absent Pericardial effusion: Absent Right thoracic free fluid: Absent Left thoracic free fluid: Absent Right lung pneumothorax: Absent Left lung pneumothorax: Absent Impression: Negative EFAST ultrasound Images were saved in the permanent archive. The study was technically adequate. CPT 36335-57 (limited cardiac) 40242?26 (limited abdominal) 17815?26 (chest) This study was performed by me, and I personally interpreted all images/videos. Based on my clinical judgment, these images were adequate and did not necessitate further imaging. Critical Care Critical Care Time Critical Care Time: No
--- NOTE | 2025-08-03 01:08 | PC.NURSE ---
Aircast placed on pt's L ankle and pt given crutch instructions and demonstrated understanding.
== END 2025-08-03 01:09 | disposition home or self-care (01) ==
PROVIDERS: Emergency Provider Emergency Medicine; PCP Nurse Practitioner Family
DX: M79.672 Pain in left foot (principal); M54.6 Pain in thoracic spine; M54.59 Other low back pain; W10.8XXA Fall (on) (from) other stairs and steps, initial encounter
CPT/HCPCS: 70450; 71045; 72125; 72128; 72131; 72170; 73590; 73610; 73630; 99284; 99285